=== PATIENT | male | born 1975 | race Caucasian/White ===

== ENCOUNTER 2017-11-03 08:36 | Outpatient (CLI) | payer OTHER ==
--- NOTE | 2017-11-03 12:22 | Ultrasound Report ---
Procedure Date: 11/03/2017 Accession Number: [id number] / [id number] Procedure: US - Ext Limited Non Vascular CPT Code: FULL RESULT: EXAM: Ext Limited Non Vascular DATE: 11/03/2017 9:13 AM CLINICAL HISTORY: L ARM PAIN TECHNIQUE: Real time scanning, with field service representative static images obtained. COMPARISON: None FINDINGS: Scanning of the region of pain in the left arm demonstrates no discrete solid or cystic mass. No sonographically suspicious findings are identified. IMPRESSION: No sonographic abnormality in the region of pain identified by the patient.
== END 2017-11-03 08:37 | disposition home or self-care (01) ==
LOC: DI 08:36
PROVIDERS: ATTEND Internal Medicine
DX: M79.602 Pain in left arm (principal)
CPT/HCPCS: 76882

== ENCOUNTER 2017-12-06 09:56 | Outpatient (CLI) | payer OTHER ==
[2017-12-06] MEDS ORDERED: GADOBUTROL 10 MMOL/10 ML VIAL ONE (10:17)
[2017-12-06] MEDS ORDERED: GADOBUTROL 10 MMOL/10 ML VIAL IVP ONE (11:55)
--- NOTE | 2017-12-06 13:04 | MRI Report ---
Procedure Date: 12/06/2017 Accession Number: [id number] / [id number] Procedure: MRI - Lumbar Spine W/WO CPT Code: FULL RESULT: EXAM: MRI LUMBAR SPINE WITHOUT AND WITH CONTRAST EXAM DATE: 12/06/2017 10:59 AM. CLINICAL HISTORY: Prior partial laminectomy. Sciatica. COMPARISONS: None. TECHNIQUE: Multiplanar, multisequence T1-weighted and fluid-sensitive sequences of the lumbar spine from T12 to S1 before and after administration of intravenous contrast. Other: None. IV contrast: 10 mL of Gadavist. FINDINGS: Alignment: No scoliosis or spondylolisthesis. Spinal Canal: The conus terminates at T12-L1. The conus medullaris and cauda equina are unremarkable. Bone Marrow: There are 5 nonrib-bearing vertebra. No gross fractures or bone lesions. No bone marrow replacement or abnormal enhancement. Disk Levels/Facets: At T11-T12, there is a disk protrusion causing mild canal narrowing and effacement of the ventral surface of the conus medullaris. T12-L1: Unremarkable. L1-L2: Unremarkable. L2-L3: Unremarkable. L3-L4: There is a broad-based posterior disk bulge with mild facet joint osteoarthritis causing mild canal narrowing. Mild bilateral foraminal narrowing. L4-L5: Prior laminectomy. Enhancing scar tissue occupies the laminectomy space. There is mild canal narrowing. There is moderate left and mild right foraminal narrowing. There is a left-sided foraminal annular tear with a small associated disk protrusion. L5-S1: Unremarkable. Spinal Canal: Enhancing soft tissue posterior to the L4-L5 interspace is consistent with prior surgery. Musculature: Normal. No edema, abnormal enhancement, or fatty atrophy. Other: The visualized retroperitoneum is unremarkable. IMPRESSION: 1. L3-L4 facet joint osteoarthritis causing mild canal and foraminal narrowing. 2. Disk protrusion at T11-T12 causes mild canal narrowing. 3. L4-L5 laminectomy with scar tissue in the laminectomy space. Mild canal narrowing. Mild right and moderate left foraminal narrowing. Left foraminal annular tear with a small associated disk protrusion. Comment: The following findings are so common in adults without low back pain that while we report their presence, they must be interpreted with caution and in the context of the clinical situation. (Reference Tamik et al, Spine 2001) Prevalence of findings in patients without low back pain: Disk degeneration (any evidence): 92% Disk desiccation/T2 signal loss: 83% Disk height loss: 56% Disk bulge: 64% Disk protrusion: 32% Annular tear/high intensity zone: 38% [facility]
== END 2017-12-06 09:57 | disposition home or self-care (01) ==
LOC: DI 09:56
PROVIDERS: ATTEND Internal Medicine
DX: M47.896 Other spondylosis, lumbar region (principal); M51.24 Other intervertebral disc displacement, thoracic region; M48.04 Spinal stenosis, thoracic region; M51.26 Other intervertebral disc displacement, lumbar region; M48.061 Spinal stenosis, lumbar region without neurogenic claudication
CPT/HCPCS: 72158; A9585

== ENCOUNTER 2018-04-26 12:57 | Outpatient (CLI) | payer OTHER ==
--- NOTE | 2018-04-27 06:43 | MRI Report ---
Reason: TENDON DISORDER OF LEFT FOREARM Procedure Date: 04/26/2018 Accession Number: [id number] / [id number] Procedure: MRI - Elbow LT W/O CPT Code: FULL RESULT: EXAM: LEFT ELBOW MRI WITHOUT CONTRAST EXAM DATE: 04/26/2018 02:14 PM. CLINICAL HISTORY: Left forearm tendon disorder COMPARISON: Ultrasound 11/03/2017. TECHNIQUE: Multiplanar, multisequence T1-weighted and fluid-sensitive sequences of the elbow without contrast. Other: None. FINDINGS: Bones: No fractures or subluxations. No marrow edema. No bone lesions. Articular Cartilage: Unremarkable. Ligaments: The ulnar collateral, lateral ulnar collateral, radial collateral, and annular ligaments are intact. Tendons: The common flexor and extensor tendons are unremarkable. The distal biceps, brachialis, and triceps tendons are unremarkable. Musculature: No edema or fatty atrophy. Other: The cubital tunnel and ulnar nerve are unremarkable. No effusion. The subcutaneous tissues are unremarkable. IMPRESSION: No MRI abnormalities in the elbow. [facility] MUSCULOSKELETAL RADIOLOGY SECTION
== END 2018-04-26 12:58 | disposition home or self-care (01) ==
LOC: DI 12:57
PROVIDERS: ATTEND Orthopaedic Surgery
DX: M67.932 Unspecified disorder of synovium and tendon, left forearm (principal)

== ENCOUNTER 2021-03-10 10:57 | Emergency (ER) | payer OTHER ==
--- NOTE | 2021-03-10 13:35 | XRAY Report ---
PROCEDURE: Shoulder 3 View LT INDICATIONS: shoulder pain, no injury TECHNIQUE: 3 views of the shoulder were acquired. COMPARISON: None. FINDINGS: Bones: No fractures or dislocations. There is mild acromioclavicular joint degeneration. The acromi on demonstrates mild lateral downsloping. No suspicious bony lesions. Visualized ribs appear intact. Soft tissues: No suspicious soft tissue calcifications. IMPRESSION: 1. No fracture or dislocation. 2. Mild lateral downsloping of the acromion may be associated with rotator cuff tearing. Reviewed by: Raghavendra Mendenhall MD on 03/10/2021 1:34 PM PDT Approved by: Raghavendra Mendenhall MD on 03/10/2021 1:34 PM PDT Station ID: [id number]
--- NOTE | 2021-03-10 13:35 | ED Physician Documentation ---
PD HPI UPPER EXT INJURY - Stated complaint Stated Complaint: LT SHOULDER PX - Chief complaint Chief Complaint: Ext Problem - History obtained from History obtained from: Patient - History of Present Illness Location: Left, Shoulder Type of injury: Twist Where injury occurred: Home Timing - onset: How many days ago (10) Timing - duration: Days (10) Timing - details: Gradual onset, Still present Improved by: Rest, Immobilization Worsened by: Moving, Palpating Associated symptoms: No: Weakness, Tingling, Swelling Contributing factors: No: Anticoagulated Similar symptoms before: Diagnosis (shoulder sprain) Recently seen: Not recently seen - Additonal information Additional information: 46-year-old male with a history of osteoarthritis has developed pain in his left shoulder he feels this was related to an abnormal movement he made about 10 days ago he has had persistence of pain and is unable to sleep at night. He is unable to get into see a primary care doctor at the [facility] and unable to get in to be referred to orthopedics.He is fairly certain that he has injured his rotator cuff. Review of Systems Constitutional: denies: Fever Eyes: denies: Decreased vision Ears: denies: Ear pain Nose: denies: Congestion Throat: denies: Sore throat Respiratory: denies: Cough : denies: Dysuria Skin: denies: Rash Musculoskeletal: reports: Joint pain. denies: Neck pain, Back pain, Extremity pain Neurologic: denies: Generalized weakness, Focal weakness, Numbness PD PAST MEDICAL HISTORY - Present Medications Home Medications: Ambulatory Orders Medication Instructions Recorded Confirmed HYDROcod/ACETAM 5/325 [Feura Bush 5/325] 1 - 2 tablet PO Q6H PRN #14 tablet 03/10/21 Ibuprofen [Motrin] 1 tablet PO Q8H PRN 03/10/21 03/10/21 traZODone [Desyrel] 150 mg PO HS 03/10/21 03/10/21 - Allergies Allergies/Adverse Reactions: Allergies Allergy/AdvReac Type Severity Reaction Status Date / Time No Known Drug Allergies Allergy Verified 03/10/21 11:07 PD ED PE NORMAL - Vitals Vital signs reviewed: Yes (hyupertensive ) - General General: Alert and oriented X 3, No acute distress, Well developed/nourished - HEENT HEENT: Atraumatic, PERRL, EOMI - Neck Neck: Supple, no meningeal sign, No bony TTP - Respiratory Respiratory: No respiratory distress - Derm Derm: Normal color, Warm and dry, No rash - Extremities Extremities: No deformity, No edema, Other (mild point tenderness to the deltoid laterally. Good ROM with pain to external rotation. Able to hold arm in abduction and place arm in abduction. distal n/v intact. 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 No fracture or dislocation to mild laterally downsloping of the acromion may be associated with rotator cuff tearing), EMP read indepedently, See rad report PD MEDICAL DECISION MAKING - ED course Complexity details: reviewed results, re-evaluated patient, considered differential, d/w patient ED course: 46-year-old male with left shoulder pain feels that he has torn his rotator cuff the radiologist appears to feel this is similar. He is administered dexamethasone 10 mg orally we will place him a short course of pain medication for sleep at night and refer him to orthopedics. Departure - Departure Disposition: 01 Home, Self Care Clinical Impression: Rotator cuff (capsule) sprain Qualifiers: Encounter type: initial encounter Laterality: left Qualified Code(s): S43.422A - Sprain of left rotator cuff capsule, initial encounter Condition: Stable Instructions: ED Tendinitis Rotator Cuff Follow-Up: Ashleigh Wright MD [Primary Care Provider] - David Morton MD [Provider Admit Priv/Credential] - Prescriptions: HYDROcod/ACETAM 5/325 [Feura Bush 5/325] 1 - 2 tablet PO Q6H PRN #14 tablet PRN Reason: Pain Comments: Avel the radiologist has reviewed your films and feels that you may have a partial tear of your rotator cuff. We are recommending you wear the sling for comfort and the important part is to remove the sling at least 3 times per day and do range of motion exercises. Follow-up with orthopedics.
[2021-03-10] MEDS ORDERED: CHERRY SYRUP 10 ML UDC PO ONE (13:53)
[2021-03-10] MEDS ORDERED: DEXAMETHASONE 10 MG/ML VIAL PO STA (13:53)
[2021-03-10 14:00] VITALS: BP 135/89
== END 2021-03-10 14:02 | disposition home or self-care (01) ==
LOC: ED 10:57
DX: S43.422A Sprain of left rotator cuff capsule, initial encounter (principal); X50.1XXA Overexertion from prolonged static or awkward postures, initial encounter; Y92.009 Unspecified place in unspecified non-institutional (private) residence as the place of occurrence of the external cause
CPT/HCPCS: 73030; 99283; A9270

== ENCOUNTER 2021-08-22 08:00 | Outpatient (CLI) | payer OTHER ==
[2021-08-22 17:01] LABS: BASOPHILS % (AUTO) 0.5 %; EOSINOPHILS # (AUTO) 0.1 10^3/uL (0.0-0.7); EOSINOPHILS % (AUTO) 2.9 %; HCT - HEMATOCRIT 43.4 % (42.0-52.0); LYMPHOCYTES # (AUTO) 1.4 10^3/uL (1.5-3.5); LYMPHOCYTES % (AUTO) 36.6 %; MEAN CORPUSCULAR HGB CONC 34.6 g/dL (32.0-36.0); MEAN CORPUSCULAR VOLUME 95.6 fL (80.0-94.0); MEAN PLATELET VOLUME 11.4 fL (7.4-11.4); MONOCYTES # (AUTO) 0.4 10^3/uL (0.0-1.0); MONOCYTES % (AUTO) 10.1 %; NEUTROPHILS # (AUTO) 1.9 10^3/uL (1.5-6.6); NEUTROPHILS % (AUTO) 49.6 %; PLT - PLATELET COUNT 205 10^3/uL (130-450); RED BLOOD COUNT 4.54 10^6/uL (4.70-6.10); RED CELL DISTRIBUTION WIDTH 12.2 % (12.0-15.0); WHITE BLOOD COUNT 3.9 x10^3/uL (4.8-10.8)
[2021-08-22 17:20] LABS: ALBUMIN 4.6 g/dL (3.2-5.5); ALBUMIN/GLOBULIN RATIO 1.8 (1.0-2.2); ALKALINE PHOSPHATASE 45 IU/L (42-121); ALT ALANINE AMINOTRANSFERASE 40 IU/L (10-60); AST ASPARTATE AMINOTRANSFERASE 20 IU/L (10-42); BILIRUBIN,TOTAL 0.7 mg/dL (0.2-1.0); BUN - BLOOD UREA NITROGEN 24 mg/dL (6-20); CALCIUM 8.7 mg/dL (8.5-10.3); CARBON DIOXIDE - CO2 27 mmol/L (21-32); CHLORIDE 102 mmol/L (101-111); CHOL/HDL RATIO 3.6 (<5.0); CHOLESTEROL 215 mg/dL; CREATININE 0.8 mg/dL (0.6-1.2); GFR - MDRD 103 (>89); GLUCOSE 90 mg/dL (70-100); HDL CHOLESTEROL 59 mg/dL; LDL CHOLESTEROL,CALCULATED 139 mg/dL; LDL/HDL RATIO 2.4 (<3.6); POTASSIUM 3.9 mmol/L (3.5-5.0); SODIUM 138 mmol/L (135-145); TOTAL PROTEIN 7.2 g/dL (6.7-8.2); TRIGLYCERIDES 87 mg/dL; VLDL CHOLESTEROL 17 mg/dL
== END 2021-08-22 23:59 | disposition home or self-care (01) ==
LOC: LAB.R 08:00
PROVIDERS: ATTEND Internal Medicine
DX: R10.9 Unspecified abdominal pain (principal); K30 Functional dyspepsia; R19.7 Diarrhea, unspecified; G47.00 Insomnia, unspecified; M19.90 Unspecified osteoarthritis, unspecified site; Z13.6 Encounter for screening for cardiovascular disorders
CPT/HCPCS: 80053; 80061; 81599; 82941; 83721; 84443; 85025

== ENCOUNTER 2021-09-22 10:57 | Emergency (ER) | payer OTHER ==
--- OUTSIDE RECORDS SUMMARY | 2021-09-22 11:23 | EXTERNAL MEDICAL SUMMARY RPT | Continuity of Care Document ---
:1975 Author Organization [facility] Address [address] [place] [address] Phone Allergies No information. Encounters No information. Medications No information. Problems date description facility [id number] Impingement syndrome of [facility] Results No information.
--- NOTE | 2021-09-22 11:40 | ED Physician Documentation ---
History of Present Illness - Stated complaint Stated Complaint: RASH/SOA - Chief complaint Chief Complaint: General - Additonal information Additional information: 46-year-old male presents emergency department for evaluation of pain on the r ight side of his chest that began 3 nights ago but yesterday evening he began developing a painful blistering rash. Unsure if he had chickenpox as a child. No fevers. Review of Systems Constitutional: denies: Fever Nose: reports: Reviewed and negative Throat: reports: Reviewed and negative Cardiac: reports: Reviewed and negative Respiratory: reports: Reviewed and negative GI: reports: Reviewed and negative Skin: reports: Rash Musculoskeletal: reports: Reviewed and negative PD PAST MEDICAL HISTORY - Past Medical History Cardiovascular: None Respiratory: None Neuro: Migraines Endocrine/Autoimmune: None GI: Other : None HEENT: None Psych: None Musculoskeletal: Chronic back pain, Other Derm: None - Past Surgical History Past Surgical History: Yes Ortho: Spine surgery - Present Medications Home Medications: Ambulatory Orders Medication Instructions Recorded Confirmed Ibuprofen [Motrin] 1 tablet PO Q8H PRN 03/10/21 09/22/21 traZODone [Desyrel] 150 mg PO HS 03/10/21 09/22/21 Gabapentin [Neurontin] 300 mg PO DAILY 7 Days #18 cap 09/22/21 Valacyclovir HCl [Valtrex] 1,000 mg PO TID 7 Days #21 tablet 09/22/21 predniSONE [Deltasone] 40 mg PO DAILY 5 Days #10 tablet 09/22/21 - Allergies Allergies/Adverse Reactions: Allergies Allergy/AdvReac Type Severity Reaction Status Date / Time No Known Drug Allergies Allergy Verified 09/22/21 11:02 - Social History Does the pt smoke?: No Smoking Status: Never smoker Does the pt drink ETOH?: Yes Does the pt have substance abuse?: No - Immunizations Immunizations are current?: Yes PD ED PE NORMAL - General General: Alert and oriented X 3, No acute distress, Well developed/nourished - HEENT HEENT: Atraumatic, Moist mucous membranes - Neck Neck: Supple, no meningeal sign, No adenopathy - Cardiac Cardiac: RRR, No murmur - Respiratory Respiratory: No respiratory distress, Clear bilaterally - Abdomen Abdomen: Normal bowel sounds, Soft - Back Back: No CVA TTP, No spinal TTP - Derm Derm: No: No rash (Right lateral thoracic chest wall vesicular rash across the T6 dermatome without extension across the midline.) - Neuro Neuro: Alert and oriented X 3 Eye Opening: Spontaneous Motor: Obeys Commands Verbal: Oriented GCS Score: 15 - Psych Psych: Normal mood Results - Vitals Vitals: Vital Signs - 24 hr 09/22/21 11:02 Temperature 36.5 C Heart Rate 85 Respiratory 18 Rate Blood Pressure 134/80 H O2 Saturation 99 Oxygen O2 Source Room air PD MEDICAL DECISION MAKING - ED course Complexity details: considered differential, d/w patient ED course: 46-year-old male presents emergency department for evaluation of 3 days right lateral thoracic rib wall pain and development of a painful vesicular rash that began last night. History and exam is consistent with primary shingles outbreak. Patient is started on Valacyclovir, Neurontin as well as a short course of prednisone. Advise close follow-up with PCP. Emergent return precautions discussed. Usual care management also discussed. Departure - Departure Disposition: 01 Home, Self Care Clinical Impression: Shingles Qualifiers: Herpes zoster complications: without complications Qualified Code(s): B02.9 - Zoster without complications Condition: Stable Record reviewed to determine appropriate education?: Yes Instructions: ED Shingles Prescriptions: predniSONE [Deltasone] 40 mg PO DAILY 5 Days #10 tablet Gabapentin [Neurontin] 300 mg PO DAILY 7 Days #18 cap Valacyclovir HCl [Valtrex] 1,000 mg PO TID 7 Days #21 tablet Comments: [place], you are seen today in the emergency department for rash that is developed on the right side of your chest wall. This is consistent with shingles. Early treatment typically involves starting an antiviral medication like valacyclovir which I have sent to the [facility] pharmacy. In order to help with the nerve pain I have also sent a prescription for a limited amount of Neurontin to this pharmacy as well. In addition to this a 5-day course of Prednisone has also been sent to the pharmacy. You do need to consider that your shingles rash is contagious until it is fully crusted/scabbed over. Be careful with anybody at your home that may be immune compromised a young or undergoing chemotherapy treatment. I recommend that you follow-up closely with Dr. Wright for longer-term management especially if you develop persistent nerve pain. You are eligible for the shingles vaccine about 90 days after an initial shingles Infection and I encourage you to pursue this moving forward to prevent future outbreaks
[2021-09-22 11:54] VITALS: BP 135/82
== END 2021-09-22 11:54 | disposition home or self-care (01) ==
LOC: ED 10:57
DX: B02.9 Zoster without complications (principal)
CPT/HCPCS: 99282; 99283

== ENCOUNTER 2022-03-30 08:00 | Outpatient (CLI) | payer OTHER ==
[2022-03-30 19:00] LABS: ALBUMIN 4.5 g/dL (3.2-5.5); ALKALINE PHOSPHATASE 55 IU/L (42-121); ALT ALANINE AMINOTRANSFERASE 23 IU/L (10-60); AST ASPARTATE AMINOTRANSFERASE 16 IU/L (10-42); BILIRUBIN,TOTAL 0.5 mg/dL (0.2-1.0); TOTAL PROTEIN 7.7 g/dL (6.7-8.2)
[2022-03-30 19:52] LABS: BILIRUBIN,DIRECT < 0.1 mg/dL (0.1-0.5)
[2022-04-01 11:10] LABS: VARICELLA-ZOSTER AB IGG 2924 index (Immune >165)
[2022-04-02 13:09] LABS: VARICELLA-ZOSTER AB IGM <0.91 index (0.00-0.90)
== END 2022-03-30 23:59 | disposition home or self-care (01) ==
LOC: LAB.R 08:00
PROVIDERS: ATTEND Internal Medicine
DX: B35.1 Tinea unguium (principal); B02.29 Other postherpetic nervous system involvement; B02.9 Zoster without complications; Z79.899 Other long term (current) drug therapy
CPT/HCPCS: 80076; 86787

== ENCOUNTER 2023-08-25 08:30 | Outpatient (CLI) | payer OTHER ==
[2023-08-25] MEDS ORDERED: DIATRIZOATE MEGLU/DIATRIZO SOD 30 ML BOTTLE PO ONE (08:32)
[2023-08-25] MEDS ORDERED: iohexoL-300 100 ML VIAL ONE (08:32)
[2023-08-25] MEDS: DIATRIZOATE MEGLU/DIATRIZO SOD 30 ML BOTTLE PO ONE (10:34)
[2023-08-25] MEDS: iohexoL-300 100 ML VIAL IVP ONE (10:34)
--- NOTE | 2023-08-25 13:17 | CT Report ---
PROCEDURE: Abdomen/Pelvis W INDICATIONS: ABD PAIN CONTRAST: Omnipaque 300 100ml TECHNIQUE: After the administration of intravenous contrast, a CT scan of the abdomen and pelvis was performed. Images were recorded and evaluated at appropriate window settings. Reformats: coronal and sagittal. F or radiation dose reduction, the following was used: automated exposure control, adjustment of mA and /or kV according to patient size. COMPARISON: None. FINDINGS: Image quality: Diagnostic. Lower chest: Unremarkable. Liver: No solid mass. Hepatic steatosis Gallbladder and biliary tree: No radiopaque stones or wall thickening. No biliary dilation. Spleen: No splenomegaly. Pancreas: No pancreatic ductal dilation. Adrenals: No adrenal nodule. Kidneys and ureters: No hydronephrosis. No renal cystic lesion which requires follow up. No solid mas s. Stomach, bowel and peritoneum: No bowel distension. No pathologic free fluid. Scattered colonic diver ticula with out acute inflammation. Normal caliber appendix. Lymph nodes: No central or retroperitoneal adenopathy. Vessels: No infrarenal aortic aneurysm. PELVIS Reproductive organs: Unremarkable. Bladder: No abnormal wall thickening, accounting for underdistention. Pelvic lymph nodes: No pelvic adenopathy by size criteria. Bones: No aggressive osseous abnormality. Other: No significant ventral or inguinal hernia. IMPRESSION: Hepatic steatosis. No other acute findings in the abdomen or pelvis. Reviewed by: Stefany Morrell MD, PhD on 08/25/2023 1:15 PM PDT Approved by: Stefany Morerll MD, PhD on 08/25/2023 1:15 PM PDT Station ID: [id number]
== END 2023-08-25 08:31 | disposition home or self-care (01) ==
LOC: DI 08:30
PROVIDERS: ATTEND Surgery
DX: K76.0 Fatty (change of) liver, not elsewhere classified (principal); R10.9 Unspecified abdominal pain
CPT/HCPCS: 74177; Q9963; Q9967

== ENCOUNTER 2023-09-18 12:36 | Emergency (ER) | payer OTHER ==
[2023-09-18] MEDS: LIDOCAINE-MPF 1% 5 ML VIAL SUBQ STA (14:48)
[2023-09-18] MEDS: HYDROcod/ACETAM 5/325 MG TABLET PO STA (14:49)
[2023-09-18 14:59] VITALS: O2SAT 98
--- NOTE | 2023-09-18 16:50 | CT Report ---
PROCEDURE: CT cervical spine without contrast INDICATIONS: fall headinjury neck pain TECHNIQUE: Helical axial CT of the cervical spine was obtained without contrast and reformatted in m ultiple planes. Radiation dose reduction was achieved utilizing automated exposure control or adjus tment of mA and/or kV according to patient size. COMPARISON: None. FINDINGS: Bones: No fractures or dislocations. Visualized superior ribs are intact. Soft tissues: Prevertebral soft tissues are normal in thickness. No paravertebral hematomas. No ap ical pneumothoraces. IMPRESSION: Normal CT of the cervical spine Reviewed by: Erasto Degroot MD on 09/18/2023 3:48 PM AKKIKA Approved by: Erasto Degroot MD on 09/18/2023 3:48 PM AKDT Station ID: [id number]
--- NOTE | 2023-09-18 16:52 | CT Report ---
PROCEDURE: CT Brain without contrast INDICATIONS: fall concussion headache TECHNIQUE: Helical axial CT of the brain was obtained without contrast and reformatted in multiple p lanes. Radiation dose reduction was achieved using automated exposure control or adjustment of mA and /or kV according to patient size. COMPARISON: None FINDINGS: CSF spaces: Ventricles are appropriate in size and position. No hydrocephalus. Basal cisterns unre markable. Brain: No midline shift. No intracranial masses or hemorrhage. Guzman-white matter interface is norm al. Skull and face: Calvarium and skull base are unremarkable without suspicious lesion. Posterior diann etal scalp hematoma Sinuses: Visualized sinuses and mastoids are clear. IMPRESSION: Scalp hematoma without skull fracture or intracranial hemorrhage Reviewed by: Erasto Degroot MD on 09/18/2023 3:51 PM AKKIKA Approved by: Erasto Degroot MD on 09/18/2023 3:51 PM AKDT Station ID: [id number]
--- NOTE | 2023-09-18 17:03 | XRAY Report ---
PROCEDURE: Hip w/Pelvis 2-3V RT INDICATIONS: fall hip pain TECHNIQUE: 3 views of the hip were acquired. COMPARISON: None. FINDINGS: Bones: No fractures or dislocations. No suspicious bony lesions. Right hip joint space and narrowin g and marginal osteophyte Soft tissues: No suspicious soft tissue calcifications or masses. IMPRESSION: Moderate right hip osteoarthritis. No fracture Reviewed by: Erasto Degroot MD on 09/18/2023 4:02 PM AKDT Approved by: Erasto Degroot MD on 09/18/2023 4:02 PM AKDT Station ID: [id number]
--- NOTE | 2023-09-18 17:04 | XRAY Report ---
PROCEDURE: Shoulder 2+V RT INDICATIONS: fall shoulder pain TECHNIQUE: 3 views of the shoulder were acquired. COMPARISON: None FINDINGS: Bones: No fractures or dislocations. No suspicious bony lesions. Visualized ribs appear intact. G lenohumeral and AC joint degenerative changes Soft tissues: No suspicious soft tissue calcifications. IMPRESSION: Osteoarthritis without fracture Reviewed by: Erasto Degroot MD on 09/18/2023 4:03 PM AKKIKA Approved by: Erasto Degroot MD on 09/18/2023 4:03 PM AKDT Station ID: [id number]
--- NOTE | 2023-09-18 17:16 | ED Physician Documentation ---
PD HPI Fall - Stated complaint Stated Complaint: HEAD INJ/BLEEDING - Chief complaint Chief Complaint: Trauma Hd/Nk - History obtained from History obtained from: Patient, Family - History of Present Illness Mechanism of injury: Other (ladder he was standing on slipped) Fall distance: Standing position, 5 to 10ft Where injury occurred: Home Timing - onset: Today Injury(ies) location: Head, Neck, Right Upper Extremity, Right Lower Extremity Quality of pain: Pain Associated symptoms: Neck pain. No: LOC, AMS, Amnesia, Seizures, Ear drainage, Nasal drainage, Weakness, Paresthesias, Dyspnea, Nausea / vomiting, Hematemesis, Abdominal distension Symptoms improve with: Rest Worsens with: Movement, Palpation Contributing factors: No: Anticoagulated, Intoxicated Similar symptoms before: Diagnosis (The patient has a history of concussion, shoulder and hip injury and shoulder and hip arthritis.) Recently seen: Not recently seen - Additional information Additional information: 48-year-old Avel Nava was standing on a ladder to pressure wash his house and the ladder was not secured it slipped out from underneath him he fell backwards landing on the back of his head lacerating his scalp and injuring his right shoulder and right hip. He is able to stand walk and move about without much difficulty he denies any loss of consciousness and states that he was able to walk to his house with his shirt over his head to stop his bleeding. He presents to the emergency department now for evaluation. Denies nausea does state that he is having some mild difficulty concentrating he denies dizziness and complains of headache. Review of Systems Constitutional: denies: Fever Eyes: denies: Decreased vision Ears: denies: Ear pain Nose: denies: Rhinorrhea / runny nose, Congestion Throat: denies: Oral lesions / sores Respiratory: denies: Dyspnea, Cough GI: denies: Nausea, Vomiting, Constipation, Diarrhea : denies: Dysuria, Frequency PD PAST MEDICAL HISTORY - Past Medical History Cardiovascular: None Respiratory: None Neuro: Migraines Endocrine/Autoimmune: None GI: Other : None HEENT: None Psych: None Musculoskeletal: Chronic back pain, Other Derm: None - Past Surgical History Past Surgical History: Yes Ortho: Spine surgery - Present Medications Home Medications: Ambulatory Orders Medication Instructions Recorded Confirmed Ibuprofen [Motrin] 1 tablet PO Q8H PRN 03/10/21 09/22/21 traZODone [Desyrel] 150 mg PO HS 03/10/21 09/22/21 Gabapentin [Neurontin] 300 mg PO DAILY 7 Days #18 cap 09/22/21 Valacyclovir HCl [Valtrex] 1,000 mg PO TID 7 Days #21 tablet 09/22/21 predniSONE [Deltasone] 40 mg PO DAILY 5 Days #10 tablet 09/22/21 HYDROcod/ACETAM 5/325 [[place] 5/325] 1 - 2 tablet PO Q6H PRN #14 tablet 09/18/23 - Allergies Allergies/Adverse Reactions: Allergies Allergy/AdvReac Type Severity Reaction Status Date / Time No Known Drug Allergies Allergy Verified 09/18/23 13:25 - Social History Does the pt smoke?: No Smoking Status: Never smoker Does the pt drink ETOH?: Yes Does the pt have substance abuse?: No - Immunizations Immunizations are current?: Yes PD ED PE NORMAL - Vitals Vital signs reviewed: Yes (hypertensive ) - General General: Alert and oriented X 3, No acute distress, Well developed/nourished - HEENT HEENT: PERRL, EOMI, Ears normal, Other (There is a 5 cm laceration to the right occiput. There is no involvement of deeper structures there is no foreign material in the wound.) - Neck Neck: Supple, no meningeal sign, No bony TTP, Other (There is tenderness to the paraspinous muscles on the right side of the neck. There is no specific tenderness to the bony cervical spine. The patient moves his neck well.) - Cardiac Cardiac: RRR, No murmur - Respiratory Respiratory: No respiratory distress, Clear bilaterally - Abdomen Abdomen: Normal bowel sounds, Soft, Non tender, Non distended, No organomegaly - Back Back: No CVA TTP, No spinal TTP - Derm Derm: Normal color, Warm and dry, No rash - Extremities Extremities: No deformity, No edema, Other (Patient is able to move his right shoulder through range of motion has some pain with placing his arm directly above his head. There is no crepitance and no deformity. Patient does have some pain to direct palpation of the trochanter on the right side and has some pain to internal and external rot) Results - Vitals Vitals: Vital Signs - 24 hr 09/18/23 09/18/23 09/18/23 12:48 13:01 13:31 Temperature 36.8 C Heart Rate 78 89 90 Respiratory 18 19 23 Rate Blood Pressure 145/102 H 114/68 116/61 O2 Saturation 99 98 95 09/18/23 09/18/23 14:58 18:00 Temperature 37 C Heart Rate 68 77 Respiratory 12 17 Rate Blood Pressure 95/65 133/91 H O2 Saturation 98 98 Oxygen O2 Source Room air - Rads (name of study) CT head Relevant Findings:: Prelim report reviewed (Impression: Scalp hematoma without skull fracture or intracranial hemorrhage.), EMP independent interpretation of test, See rad report hip R Relevant Findings:: Prelim report reviewed (Impression: Moderate right hip osteoarthritis. No fracture.), EMP independent interpretation of test, See rad report cervical spine Relevant Findings:: Prelim report reviewed (Impression: Normal CT of the cervical spine.), EMP independent interpretation of test, See rad report right shoulder Relevant Findings:: Prelim report reviewed (Impression: Osteoarthritis without fracture.), EMP independent interpretation of test, See rad report Procedures - Laceration (location) scalp Wound type: Linear, Into subcut fat, Clean Neurovascular status: Sensory intact, Motor intact, Vascular intact Anesthesia: Lidocaine 1% Wound preparation: Hibiclens, Irrigated copiously NS, Wound explored, To the base Skin layer closure: [place] Other: Patient tolerated well, No complications, Neurovascular intact PD Medical Decision Making - ED course Complexity details: reviewed results, re-evaluated patient, considered differential, d/w patient ED course: 48-year-old male with a fall off of a ladder approximately 6 feet up the ladder. He has a laceration to his scalp and a sore neck and a headache. We did CT of the head and neck without evidence of fracture or intracranial hemorrhage and the laceration to the scalp was repaired with arabella. Patient tolerated this well. He does have significant arthritis in both his shoulder and his hip he is moving these both well he is able to bear weight he has no evidence of fracture. He is discharged to home anticipating as many as 5 days off work and we have provided some pain medication. Departure - Departure Disposition: 01 Home, Self Care Clinical Impression: Concussion Qualifiers: Encounter type: initial encounter Loss of consciousness presence/duration: without LOC Qualified Code(s): S06.0X0A - Concussion without loss of consciousness, initial encounter Cervical strain, acute Qualifiers: Encounter type: initial encounter Qualified Code(s): S16.1XXA - Strain of muscle, fascia and tendon at neck level, initial encounter Sprain of shoulder, right Qualifiers: Encounter type: initial encounter Shoulder sprain type: unspecified sprain Qualified Code(s): S43.401A - Unspecified sprain of right shoulder joint, initial encounter Contusion of left hip Qualifiers: Encounter type: initial encounter Qualified Code(s): S70.02XA - Contusion of left hip, initial encounter Scalp laceration Qualifiers: Encounter type: initial encounter Qualified Code(s): S01.01XA - Laceration without foreign body of scalp, initial encounter Condition: Stable Instructions: ED Concussion, ED Contusion Hip, ED Laceration Scalp Stitch Or Stap, ED Sprain Strain Neck, ED Sprain Shoulder Prescriptions: HYDROcod/ACETAM 5/325 [[place] 5/325] 1 - 2 tablet PO Q6H PRN #14 tablet PRN Reason: Pain Comments: Avel, today it looks like you had a pretty good concussion and laceration to your scalp. I am expecting your injuries to heal up well within the next several days and you may have some significant pain associated with both your shoulder and hip. They both have significant arthritis in them and injuring them will hurt more than usual. I have E scribed some pain medication to use as needed. This has been E scribed to the [facility] in [place]. The arabella will need to be removed from your scalp in 10 days. Forms: PCP List Discharge Date/Time: 09/18/23 18:01
[2023-09-18 18:07] VITALS: BP 133/91
== END 2023-09-18 18:01 | disposition home or self-care (01) ==
LOC: ED 12:36
DX: S01.01XA Laceration without foreign body of scalp, initial encounter (principal); S06.0X0A Concussion without loss of consciousness, initial encounter; S16.1XXA Strain of muscle, fascia and tendon at neck level, initial encounter; S43.401A Unspecified sprain of right shoulder joint, initial encounter; S70.02XA Contusion of left hip, initial encounter; W11.XXXA Fall on and from ladder, initial encounter
CPT/HCPCS: 12002; 70450; 72125; 73030; 73502; 99284; A9270

== ENCOUNTER 2023-12-27 08:27 | Day surgery (SDC) | payer OTHER ==
[2023-12-27] MEDS ORDERED: ceFAZolin 2 GM VIAL ONE (08:40)
[2023-12-27] MEDS: LACTATED RINGERS 1,000 ML IV ONE (08:51)
[2023-12-27 09:02] VITALS: O2SAT 98
--- NOTE | 2023-12-27 10:04 | ANESTHESIA ---
Pre-Anesthesia VS, & Labs - Diagnosis WEAK URINARY STREAM, BPH W/ OBSTRUCTION - Procedure UROLIFT Vital Signs: Temp Pulse Resp BP Pulse Ox O2 Flow Rate 36.1 C L 68 16 132/74 H 98 12/27/23 08:53 12/27/23 08:53 12/27/23 08:53 12/27/23 08:53 12/27/23 08:53 Height: 6 ft 5 in Weight (kg): 102.1 kg Body Mass Index: 26.6 BMI Classification: Overweight - NPO >8 hours Home Medications and Allergies Home Medications: Ambulatory Orders Docusate Sodium [Stool Softener] 250 mg PO DAILY 12/16/23 traZODone [Desyrel] 150 mg PO HS 03/10/21 Docusate Sodium [Stool Softener] 250 mg PO DAILY 12/16/23 Allergies/Adverse Reactions: Allergies Allergy/AdvReac Type Severity Reaction Status Date / Time No Known Drug Allergies Allergy Verified 12/27/23 09:00 Anes History & Medical History - Anesthetic History Anesthesia Complications: reports: No previous complications (HAS BEEN TOLD HE "REQUIRES MORE ANESTHESIA THAN USUAL") Family history of Anesthesia Complications: Denies Family history of Malignant Hyperthermia: Denies - Medical History Cardiovascular: reports: None Pulmonary: reports: None Gastrointestinal: reports: Chronic diarrhea, Other Urinary: reports: Benign prostate hypertrophy Neuro: reports: Migraines (D/T ARTHRITIS IN HIS NECK) Musculoskeletal: reports: Osteoarthritis, Chronic back pain Endocrine/Autoimmune: reports: None Blood Disorders: reports: None Skin: reports: None Smoking Status: Never smoker Psychosocial: reports: Alcohol (SOCIALLY OCCASIONAL) History of Cancer?: No - Surgical History General: reports: Colonoscopy Orthopedic: reports: Hip replacement, Spine surgery Results - EKG Results EKG Comparison: Reviewed EKG, Normal EKG Exam General: Alert, Oriented x3, Cooperative, No acute distress Dental: WNL Mouth Openin Fingerbreadth Neck Mobility: Reduced (ARTHRITIS) Mallampati classification: III Thyromental Distance: 4-6 cm Mental/Cognitive Status: Alert/Oriented X3, Normal for patient Cognitive Status: Within normal limits Plan Anesthesia Type: General Consent for Procedure(s) Verified and Reviewed: Yes Code Status: Attempt Resuscitation ASA classification: 2-Mild systemic disease Is this case an emergency?: No
[2023-12-27] MEDS ORDERED: LIDOCAINE 2% URO-JET 5 ML SYRINGE UR ONE (11:08)
[2023-12-27] MEDS ORDERED: PROPOFOL 200 MG/20 ML VIAL IVP ONE (11:38)
[2023-12-27] MEDS ORDERED: fentaNYL 100 MCG/2 ML VIAL ONE (11:41)
[2023-12-27] MEDS ORDERED: HYDROmorphone 1 MG/ML CARPUJECT ONE (11:54)
[2023-12-27] MEDS ORDERED: ACETAMINOPHEN 1,000 MG/100 ML 1,000 MG/100 ML BAG IV ONE (11:55)
[2023-12-27] MEDS ORDERED: DEXAMETHASONE 4 MG/ML VIAL ONE (11:55)
[2023-12-27] MEDS ORDERED: ONDANSETRON 4 MG/2 ML VIAL ONE (11:55)
[2023-12-27] MEDS: LIDOCAINE 2% URO-JET 5 ML SYRINGE UR ONE (12:05)
[2023-12-27] MEDS ORDERED: fentaNYL 100 MCG/2 ML VIAL IVP PRN (12:08)
[2023-12-27] MEDS ORDERED: ATROPINE ABBOJECT 1 MG/10 ML SYRINGE IVP PRN (12:08)
[2023-12-27] MEDS ORDERED: METOCLOPRAMIDE 10 MG/2 ML VIAL IVP PRN (12:08)
[2023-12-27] MEDS ORDERED: HYDROmorphone 0.5 MG/0.5 ML SYRINGE IVP PRN (12:08)
[2023-12-27] MEDS ORDERED: MORPHINE 2 MG/ML CARPUJECT IVP PRN (12:08)
[2023-12-27] MEDS ORDERED: ePHEDrine 50 MG/ML VIAL IVP PRN (12:08)
[2023-12-27] MEDS ORDERED: ONDANSETRON 4 MG/2 ML VIAL IVP PRN ×2 (12:08→12:11)
[2023-12-27] MEDS ORDERED: NALOXONE 0.4 MG/ML VIAL IVP PRN (12:08)
--- NOTE | 2023-12-27 12:18 | Discharge Plan ---
Discharge Plan Problem Reviewed?: Yes Disposition: Home, Self Care Condition: Good Prescriptions: oxyCODONE [Roxicodone] 5 mg PO Q4H PRN #10 tablet PRN Reason: Pain Diet: Regular Activity Restrictions: Additional Comments (as instructed) Shower Restrictions: No Driving Restrictions: No Instruction Topics: Cueva Catheter Remove, Catheter Bag Urinary Empty Clean Additional Instructions or Follow Up instructions: You have a follow-up appointment with Dr. Carter on February 07 at 10:15 AM. Please arrive 15 minutes early No Smoking: If you smoke, Please STOP! Call for help. Follow-up with: Ashleigh Wright MD [Primary Care Provider] - Kermit Carter MD [Provider Admit Priv/Credential] -
--- NOTE | 2023-12-27 12:22 | OPERATIVE REPORT ---
Operative Report - General Procedure Date: 12/27/23 Planned Procedure: cystoscopy, urolift Pre-Op Diagnosis: BPH with obstruction Procedure Performed: Cystoscopy, urolift with 4 implants Post Op Diagnosis: BPH with obstruction - Procedure Note Primary Surgeon: Raul Anesthesia Provider: EMILY García Anesthesia Technique: General LMA Pathology: none Findings: 4 urolift implants Complications: none - Other Other Information/Narrative: After informed consent was obtained the patient was brought to the OR and laid in the supine position. The patient was anesthetized per anesthesia protocols and prepped draped in the usual sterile fashion in the dorsal lithotomy position. A formal timeout was performed, reconfirmeing the patient, procedure and laterality. UroLift scope was advanced easily into urinary bladder. Bladder inspected and full and there were no masses lesions or other concerns. He had a tight but short prostate. He did have a posterior median bar. UroLift implants were placed about 5 mm distal to the bladder neck in the anterior position on both sides for a total of 2 implants. The right UroLift implant seemed relatively close to the bladder neck. 2 more implants were placed just proximal to the verumontanum in the anterior position. He had a wide open anterior channel but there was some posterior mass effect of his median bar. There was some minimal oozing from the mucosa and so a 20 [place] two-way Cueva catheter was placed. There were total of 4 UroLift implants placed This concluded procedure the patient tolerated the procedure well. He was brought to PACU that further incident. He will take catheter out tomorrow. He will follow-up in 6 weeks time
[2023-12-27] MEDS: LACTATED RINGERS IV ONE ×2 (12:23→13:32)
[2023-12-27] MEDS ORDERED: HYDROcod/ACETAM 5/325 MG TABLET ONE (12:45)
[2023-12-27 12:47] VITALS: BP 130/99
[2023-12-27] MEDS: HYDROcod/ACETAM 5/325 MG TABLET PO PRN (12:53)
[2023-12-27] MEDS ORDERED: LACTATED RINGERS 1,000 ML IV SCH (13:00)
== END 2023-12-27 08:28 | disposition home or self-care (01) ==
LOC: SDS 08:27
PROVIDERS: ATTEND Urology
DX: N40.1 Benign prostatic hyperplasia with lower urinary tract symptoms (principal); N13.8 Other obstructive and reflux uropathy; R39.12 Poor urinary stream
CPT/HCPCS: 52441; 52442; A9270; J0131; J1170; J7120; L8699